=== PATIENT | male | born 1935 | race Caucasian/White ===

== ENCOUNTER 2019-08-27 00:23 | Emergency (ER) | payer OTHER, MEDICAID ==
[~2019-08-27] VITALS: Ht 175.3 cm; Wt 77.1 kg
--- NOTE | 2019-08-27 00:30 | NUR ---
PT BIBRA FROM HOME C/O FEVER 101.1 AND [employer]ILLS DIRECTOR HUMAN SERVICES. PT DENIES COUGH, SOB, CHEST PAIN, DYSURIA, NAUSEA, VOMITTING. O2 SAT 95% ON ROOM AIR. PT AAOX4. RESPIRATIONS EVEN AND UNLABORED. SKIN INTACT. VITAL SIGNS STABLE. NO ACUTE DISTRESS NOTED AT THIS TIME. PT PLACED IN GOWN AND ON MONITOR, WILL CONTINUE TO MONITOR
[2019-08-27] MEDS ORDERED: ACETAMINOPHEN ES 500 MG TABLET ONE (00:45)
--- NOTE | 2019-08-27 00:59 | NUR ---
IV INITIATED RAC 18G. LABS DRAWN FROM SITE. CHILD PROTECTION SPECIALIST AT BEDSIDE FOR COLLECTION. IV INTACT AND PATENT, PLACED ON SALINE LOCK
[2019-08-27] MEDS ORDERED: ACETAMINOPHEN 325 MG TABLET PO ONE (01:00)
[2019-08-27 01:02] LABS: BASOPHILS % (AUTO) 0.3 % (0.0-2.0); EOSINOPHILS % (AUTO) 0.9 % (0.0-6.0); HEMATOCRIT 46 % (39-51); HEMOGLOBIN 15.2 g/dL (13.5-17.5); LYMPHOCYTES # (AUTO) 0.8 /CMM (0.8-4.8); LYMPHOCYTES % (AUTO) 5.8 % (20.0-44.0); MEAN CORPUSCULAR HGB CONC 33 g/dl (31.0-36.0); MEAN CORPUSCULAR VOLUME 94 fL (80-96); MONOCYTES # (AUTO) 0.7 /CMM (0.1-1.30); MONOCYTES % (AUTO) 4.9 % (2.0-12.0); NEUTROPHILS # (AUTO) 12.6 /CMM (1.8-8.9); NEUTROPHILS % (AUTO) 88.1 % (43.0-81.0); PLATELET COUNT (AUTO) 196 /CMM (150-450); RED BLOOD CELL COUNT(AUTO) 4.88 MIL/uL (4.5-6.0); WHITE BLOOD COUNT (AUTO) 14.3 K/uL (4.3-11.0)
--- NOTE | 2019-08-27 01:02 | NUR ---
RADIOLOGY AT BEDSIDE FOR CXR
[2019-08-27 01:10] LABS: CALCIUM, SERUM 8.2 mg/dL (8.5-10.1); CARBON DIOXIDE 27 mmol/L (21-32); CHLORIDE 107 mmol/L (98-107); CREATININE 1.1 mg/dL (0.6-1.3); GLUCOSE 143 mg/dL (74-106); POTASSIUM 4.1 mmol/L (3.5-5.1); SODIUM SERUM 140 mmol/L (136-145); UREA NITROGEN, BLOOD 20 mg/dL (7-18)
[2019-08-27 01:17] LABS: ALANINE AMINOTRANSFERASE 25 U/L (12-78); ALBUMIN 3.7 g/dL (3.4-5.0); ALKALINE PHOSPHATASE 62 U/L (46-116); ASPARTATE AMINOTRANSFERASE 15 U/L (15-37); BILIRUBIN,DIRECT 0.2 mg/dL (0.0-0.2); BILIRUBIN,TOTAL 1.1 mg/dL (0.2-1.0); TOTAL PROTEIN, SERUM 6.7 g/dL (6.4-8.2)
[2019-08-27] MEDS ORDERED: IBUPROFEN 400 MG TABLET PO ONE ×2 (01:30→03:00)
--- NOTE | 2019-08-27 01:35 | NUR ---
SPOKE TO PT'S . PER , PT WAS SHIVERING AT HOME WHICH THEN CHECKED TEMP AND CALLED 911 DUE TO TEMP BEING 101. UPDATED CARE OF PLAN, WILL CALL BACK LATER WHEN RESULTS APPEAR.
--- NOTE | 2019-08-27 02:21 | NUR ---
Patient is resting comfortably in bed. Easily aroused. VSS. Helped patient move in bed.
--- NOTE | 2019-08-27 02:21 | NUR ---
CALLED QUINN ZAMORA
--- NOTE | 2019-08-27 02:26 | NUR ---
DR. TURCIOS SPEAKING WITH QUINN ANDUJAR, DR. HUANG
[2019-08-27] MEDS ORDERED: AZITHROMYCIN 500 MG in IV D5W 250 ML IV ONE (02:30)
[2019-08-27] MEDS ORDERED: CEFTRIAXONE 1GM BAG (ER ONLY) 1 GM/50 ML PIGGYBACK IV ONE (02:30)
[2019-08-27] MEDS ORDERED: CEFTRIAXONE 1GM BAG (ER ONLY) 50 ML IV ONE (02:45)
--- NOTE | 2019-08-27 02:49 | NUR ---
PT BP 103.0 MD ORDERED MOTRIN 800MG.
[2019-08-27] MEDS ORDERED: IBUPROFEN 400 MG TABLET ONE (02:55)
--- NOTE | 2019-08-27 02:56 | NUR ---
URINE SENT TO LAB
--- NOTE | 2019-08-27 03:03 | NUR ---
ICE PACKS PLACED UNDER PT'S ARMPITS AND NECK. VSS.
[2019-08-27 03:04] LABS: APPEARANCE,URINE CLEAR (CLEAR); BILIRUBIN,URINE NEGATIVE (NEGATIVE); BLOOD, URINE NEGATIVE Ery/uL (NEGATIVE); COLOR,URINE YELLOW (YELLOW); KETONES,URINE TRACE (NEGATIVE); LEUKOCYTE ESTERASE ,URINE NEGATIVE (NEGATIVE); NITRITE, URINE NEGATIVE (NEGATIVE); PROTEIN,URINE NEGATIVE (NEGATIVE); UGLUCOSE NEGATIVE (NEGATIVE)
[2019-08-27] MEDS ORDERED: AZITHROMYCIN 500 MG VIAL ONE (03:07)
[2019-08-27 03:14] LABS: BACTERIA,URINE None seen /HPF (None Seen); RBC,URINE 0-2 /HPF (0-2); SQUAMOUS EPITHELIAL CELL,UR Rare /HPF (None Seen); WBC,URINE 0-2 /HPF (0-3)
--- NOTE | 2019-08-27 03:20 | NUR ---
PER [facility], PT WILL BE TRANSFERRED TO [facility]. PENDING BED AVAILABILITY
--- NOTE | 2019-08-27 03:54 | NUR ---
CHECKED TEMP 100.2 MD AWARE.
--- NOTE | 2019-08-27 04:02 | NUR ---
CALLED [facility], PENDING BED AVAILABILITY. WILL FOLLOW UP.
--- NOTE | 2019-08-27 05:12 | NUR ---
TRANSFER INFO: [facility] [id number] REPORT [phone] ACCEPTED PAULO LUNA 0600 AM
--- NOTE | 2019-08-27 05:15 | NUR ---
CALL TAMERA AT
--- NOTE | 2019-08-27 05:44 | NUR ---
REPORT GIVEN TO MANOJ MANZANO FOR [facility]
[2019-08-27 06:01] VITALS: BP 108/64
--- NOTE | 2019-08-27 06:12 | NUR ---
REPORT GIVEN TO ALS. PT TRANSFERED PER [facility]
== END 2019-08-27 06:20 | disposition short-term general hospital (02) ==
LOC: ER 00:24
DX: A41.9 Sepsis, unspecified organism (principal); J18.9 Pneumonia, unspecified organism; Z20.828 Contact with and (suspected) exposure to other viral communicable diseases; R00.0 Tachycardia, unspecified; I44.4 Left anterior fascicular block
CPT/HCPCS: 36415; 71045; 80048; 80076; 81001; 83605 ×2; 84484; 85025; 87040 ×2; 87077; 87186; 93005; 96365; 96368; 99291; J0456; J0696; 81000-TC

== ENCOUNTER 2021-12-05 09:05 | Emergency (ER) | payer OTHER ==
[~2021-12-05] VITALS: Ht 175.3 cm; Wt 74.8 kg
--- NOTE | 2021-12-05 09:10 | NUR ---
DR OLSON AT BEDSIDE FOR EVAL
[2021-12-05] MEDS ORDERED: IV NS 0.9% 500 ML BAG IV ONE (09:30)
--- NOTE | 2021-12-05 09:30 | NUR ---
covid swab collected and sent to lab
[2021-12-05 10:03] LABS: BASOPHILS # (AUTO) 0.1 K/uL (0.0-0.2); BASOPHILS % (AUTO) 0.4 % (0.0-2.0); EOSINOPHILS % (AUTO) 0.4 % (0.0-6.0); HEMATOCRIT 43 % (39-51); LYMPHOCYTES # (AUTO) 0.6 K/uL (0.8-4.8); LYMPHOCYTES % (AUTO) 3.6 % (20.0-44.0); MEAN CORPUSCULAR HGB CONC 33 g/dl (31.0-36.0); MEAN CORPUSCULAR VOLUME 93 fL (80-96); MONOCYTES # (AUTO) 1.2 K/uL (0.1-1.30); MONOCYTES % (AUTO) 7.9 % (2.0-12.0); NEUTROPHILS # (AUTO) 13.4 K/uL (1.8-8.9); NEUTROPHILS % (AUTO) 87.7 % (43.0-81.0); PLATELET COUNT (AUTO) 155 K/uL (150-450); RED BLOOD CELL COUNT(AUTO) 4.59 MIL/uL (4.5-6.0); WHITE BLOOD COUNT (AUTO) 15.3 K/uL (4.3-11.0)
[2021-12-05 10:19] LABS: CARBON DIOXIDE 26 mmol/L (21-32); CHLORIDE 106 mmol/L (98-107); CREATININE 1.2 mg/dL (0.6-1.3); GLUCOSE 115 mg/dL (74-106); POTASSIUM 4.2 mmol/L (3.5-5.1); SODIUM SERUM 140 mmol/L (136-145); UREA NITROGEN, BLOOD 20 mg/dL (7-18)
--- NOTE | 2021-12-05 10:20 | NUR ---
PT RETURNED FROM RADIOLOGY
[2021-12-05 10:31] LABS: ALANINE AMINOTRANSFERASE 19 U/L (12-78); ALBUMIN 3.5 g/dL (3.4-5.0); ALKALINE PHOSPHATASE 51 U/L (46-116); ASPARTATE AMINOTRANSFERASE 15 U/L (15-37); BILIRUBIN,DIRECT 0.4 mg/dL (0.0-0.2); TOTAL PROTEIN, SERUM 6.3 g/dL (6.4-8.2)
[2021-12-05] MEDS ORDERED: GABA-532 PO (10:38)
--- NOTE | 2021-12-05 10:43 | NUR ---
LAC ACID 2.4; DR OLSON MADE AWARE.
--- NOTE | 2021-12-05 11:13 | NUR ---
KAJAL () [phone]; UPDATED W/ PT'S CONDITION/PROGRESS
[2021-12-05] MEDS ORDERED: IV NS 0.9% 250 ML IV ONE (11:28)
[2021-12-05] MEDS ORDERED: CT SWABBABLE VALVE TRANS SET 1 EA INFUS.SET MC ONE (11:28)
[2021-12-05] MEDS ORDERED: IOHEXOL-300 100 ML VIAL IV ONE (11:28)
--- NOTE | 2021-12-05 13:26 | NUR ---
CALLED [facility] Bethany ROJAS WILL CALL US BACK.
--- NOTE | 2021-12-05 13:43 | NUR ---
LACTIC ACID 2.0 DR. OLSON AWARE.
--- NOTE | 2021-12-05 14:40 | NUR ---
[facility] CALLED FOR FOOD TRAY
[2021-12-05 15:50] VITALS: BP 133/64
--- NOTE | 2021-12-05 16:16 | NUR ---
CALL BACK FROM ZBIGNIEW MANZANO, PATIENT ACCEPTED AT [facility],REPORT TO [phone], TELE [phone],Bowen PINZON, ALS PRN ETA [phone]
--- NOTE | 2021-12-05 16:32 | NUR ---
PT REPORT GIVEN TO NATACHA MCKEON AT [facility]
--- NOTE | 2021-12-05 17:40 | NUR ---
EMT AT BEDSIDE TO PICKUP PT; ENDORSEMENT GIVEN
--- NOTE | 2021-12-05 17:45 | NUR ---
pt picked up by emt and discharged to [facility]; discharge docs given to emt at bedside
== END 2021-12-05 18:29 | disposition short-term general hospital (02) ==
LOC: ER 09:11
DX: R55 Syncope and collapse (principal); D72.829 Elevated white blood cell count, unspecified; E87.2 Acidosis; Z90.49 Acquired absence of other specified parts of digestive tract; N28.1 Cyst of kidney, acquired; Z20.822 Contact with and (suspected) exposure to COVID-19; R42 Dizziness and giddiness; R94.31 Abnormal electrocardiogram [ECG] [EKG]
CPT/HCPCS: 99285; 70450; 96360; 76705; 71045; 87426; 93005; 74177; 85025; 80048; 83605 ×2; 80076; 36415; 84484; 85730; 87081; J7030; J7050; J7040; Q9967; C9803